=== PATIENT | male | born 1955 | race Caucasian/White ===

== ENCOUNTER 2017-07-21 07:18 | Inpatient (IN) | payer OTHER ==
[~2017-07-21] VITALS: Ht 169.2 cm; Wt 79.0 kg
[~2017-07-21 07:18] MED LIST: MAPA500C PO; MULT-65 PO
[2017-07-21] MEDS ORDERED: METOPROLOL TARTRATE 25 MG TAB PO PRN (07:45)
[2017-07-21] MEDS ORDERED: POVIDONE IODINE 5% (ANTISEPSIS KIT) 4 APPLICATIONS EACH NARE PRN (07:45)
[2017-07-21] MEDS ORDERED: CHLORHEXIDINE GLUCONATE 2 % 1 PACK (2 CLOTHS) TOPICAL PRN (07:45)
[2017-07-21] MEDS ORDERED: VANCOMYCIN 1000 MG/NS 250 ML (for <70 kg) IV SCH ×2 (07:45)
[2017-07-21] MEDS ORDERED: POVIDONE IODINE 7.5% SCRUB 118 ML BOTTLE TOPICAL SCH (07:45)
[2017-07-21] MEDS ORDERED: LACTATED RINGER'S 1000 ML IV PRN (07:45)
[2017-07-21] MEDS ORDERED: SODIUM CHLORID 0.9% 500 ML IV PRN (07:45)
[2017-07-21] MEDS ORDERED: ceFAZolin 2 GM PREMIX 50 ML IV SCH (07:45)
[2017-07-21] MEDS ORDERED: GENTAMICIN SULFATE 80 MG/2 ML VIAL ONE (08:18)
[2017-07-21] MEDS ORDERED: EXPAREL PERI-ARTICULAR INJECTION (TOTAL VOL. 60 ML) P-ARTICULR SCH ×2 (09:00)
[2017-07-21] MEDS ORDERED: TRANEXAMIC ACID INJ 790 MG in SODIUM CHLORIDE 0.9% INJ 100 ML IV SCH (09:00)
[2017-07-21] MEDS ORDERED: RESP: ALBUTEROL 2.5 MG/IPRATROPIUM 0.5 MG NEB (SCH) ONE (09:10)
[2017-07-21] MEDS ORDERED: ACETAMINOPHEN 1000 MG/100 ML 100 ML IV ONE (10:03)
[2017-07-21] MEDS ORDERED: FAMOTIDINE 20 MG/2 ML VIAL ONE (10:03)
[2017-07-21] MEDS ORDERED: LACTATED RINGER'S 1000 ML INJ 1,000 ML IV SCH (13:38)
--- NOTE | 2017-07-21 13:44 | PD.OP ---
cc: Carlos Ross MD Operative Report Date of Surgery: Jul 21, 2017 Preoperative Diagnosis: Nonunion left femoral neck fracture Postoperative Diagnosis: Same. 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 Surgeon: Carlos Ross Sack Keeper(s): KALI Sandoval Operation and Findings: EBL: 350 cc INDICATION: This patient presents with significant hip pain related to a nonunion of left femoral neck fracture. This was treated surgically over year ago with multiple screws. 2 months ago he had screw fixation that was removed because of impingement. He's had increasing pain and evidence of progressive motion across 3 to the fracture, consistent with a nonunion and possible avascular necrosis.. Despite extensive conservative care this patient continues to be painful and now presents for surgical treatment. NOTE: Maribell Sandoval PA-C was present for the entire surgical procedure as my embroidery assistant. In my medical opinion her skill and care was necessary for the proper management of this patient. COMPONENTS: COMPANY: [employer] CUP: Sigel, 54 mm, 100 series, gription surface LINER: Altrx 32, neutral STEM: Corail, size 12, high offset, hydroxyapatite-coated HEAD: Ceramic, 32, +5 mm, 12/14 taper PROCEDURE: This patient was brought to the operating room and anesthetized in the supine position and positioned on the fracture table with both legs held extended. The left hip and leg was scrubbed with alcohol followed by Hibiclens followed by ChloraPrep and draped sterilely. Antibiotics were given within routine time window and a timeout was done. A 4 inch incision was made starting 2 cm distal and 2 cm lateral to the anterior superior iliac spine. The fascia scotty was opened longitudinally. The interval between the fascia scotty and the rectus was opened down to the capsule of the hip joint. Retractors were positioned allowing good visualization of the capsule. This was opened longitudinally and flaps were created. There was evidence of a nonunion of the femoral neck. There was a notable motion between the femoral head and the rest of the femur. Stay sutures were utilized. Exposure was excellent. The neck was cut at the proper location using fluoroscopy as a guide. The head was removed. Deep retractors were positioned allowing good visualization of the acetabulum. Acetabulum was deepened down to the floor starting with a proper size reamer and reaming up to 53 mm. A trial was utilized. Fluoroscopy was used to check position and confirmed satisfactory alignment. The rim was reamed with a a 54 mm reamer and the final cup was positioned in approximately 20 of anteversion and 40-45 of abduction. Position was satisfactory. A single hole eliminator was positioned followed by the final liner. The lifting hook was utilized. The leg was dropped to the floor, maximally externally rotated and brought across the midline. Retractors were positioned. A box osteotome was utilized followed by progressive broaching to the proper stem size. Trial reduction showed excellent alignment and fit. With 40 of external rotation the leg was dropped to the floor without evidence of anterior subluxation. The wound was irrigated. The final stem was inserted and was found to be very stable. The final reduction using the final head. Stability was as previously noted. Intraoperative x-rays were taken. The wound was irrigated copiously. Hemostasis was controlled. Local anesthesia was utilized. The capsule was repaired with #2 Tycron sutures. The fascia scotty was repaired with running 0 PDS on a loop. Subcutaneous tissue was approximated with 2-0 Vicryl and skin with running intradermal 3-0 Vicryl followed by Steri-Strips. A sterile dressing was applied. The patient was awakened and taken to the recovery room in satisfactory condition. FINDINGS: There is evidence of a nonunion of the left femoral neck. This was removed. We needed to machine the calcar more than usual because of hypertrophy of bone which was placing the stem in a valgus position. Final fit was excellent without signs of instability or complication. Carlos Ross MD Jul 21, 2017 13:44
[2017-07-21] MEDS ORDERED: MISCELLANEOUS NURSING INFORMATION XX PRN (13:45)
[2017-07-21] MEDS ORDERED: MORPHINE SULFATE 30 MG/30 ML PCA IV SCH (13:45)
[2017-07-21] MEDS ORDERED: MISCELLANEOUS PHARMACY INFORMATION XX ONE (13:45)
[2017-07-21] MEDS ORDERED: SODIUM CHLORIDE 0.9% FLUSH 5 ML FLUSH IVF PRN (13:45)
[2017-07-21] MEDS ORDERED: NALOXONE HCL 0.4 MG/ML AMP IV PUSH PRN (13:45)
[2017-07-21] MEDS ORDERED: MORPHINE SULFATE 8 MG/ML INJ IM PRN (13:45)
[2017-07-21] MEDS ORDERED: Post-op Orders (for Pharmacy) MISC XX ONE (13:45)
[2017-07-21] MEDS ORDERED: ACETAMINOPHEN/HYDROcodone 325 MG/7.5 MG TAB PO PRN ×2 (13:45)
[2017-07-21] MEDS ORDERED: HYDR-3580 PO (13:47)
[2017-07-21] MEDS ORDERED: XARE10TA PO (13:47)
[2017-07-21] MEDS ORDERED: MORPHINE SULFATE 30 MG/30 ML PCA ONE (13:54)
[2017-07-21] MEDS: PCA - TOTAL MG MORPHINE DELIVERED PER SHIFT SCH ×2 (14:00→22:00)
[2017-07-21] MEDS ORDERED: DO NOT ADM ANY ANTICOAGULANT DRUGS PRN (14:06)
[2017-07-21] MEDS ORDERED: *morphine SULFATE 8 MG/ML PERIprocedure ONLY ONE (14:30)
[2017-07-21] MEDS: REMOVE OLD PATCH T-DERMAL SCH (15:26)
[2017-07-21 16:00] VITALS: BP 103/62; PULSE 88; RESP 18; TEMP 96.6; O2SAT 100
[2017-07-21] MEDS: NICOTINE 21 MG/24 HR PATCH T-DERMAL SCH (16:44)
--- NOTE | 2017-07-21 16:45 | RADRPT ---
EXAM DATE/TIME: 07/21/2017 11:54 [facility] COMPARISON: HIP LEFT (AP&LAT 2/3VWS) WO AP PELVIS, July 03, 2016, 16:06. INDICATIONS : Left anterior hip replacement. MEDICAL HISTORY : Osteoarthritis. Smoker. SURGICAL HISTORY : Previous left hip pinning and removal or hardware. ENCOUNTER: Initial ACUITY: 1 day PAIN SCORE: Non-responsive. LOCATION: Left anterior hip. FINDINGS: A two view examination of the left hip was performed. The patient had a total hip arthroplasty in goo d position. There no complications.. CONCLUSION: Status post left total hip arthroplasty Dilan Valenzuela MD on July 21, 2017 at 16:43 Board Certified Radiologist. This report was verified electronically.
[2017-07-21] MEDS ORDERED: WALKER WHEELS/F1 MIS (19:41)
--- NOTE | 2017-07-21 19:42 | HHI.DCPOC ---
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 Avoid second hand smoke Call the 24-hour hour crisis hotline for domestic abuse at Erica Gutierrez Jul 21, 2017 19:42
--- NOTE | 2017-07-21 19:44 | HHI.DS ---
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 Lateral hip pain so scerws were removed. Fracture began to compress indicating nonunion. COnvert to total hip. Hospital Course Surgical treatment was performed on the day of admission without complication. He recovered well in PACU and was transferred to the orthopaedic floor. Pain was controlled with IV and oral medications. DVT prophylaxis was initiated pod# 1. He was compliant with physical therapy and all restrictions. He was alotted a single beer per meal to avoid DTs. After 1`day he was found to be stable and discharged to intermediate at [facility]. ... Pt Condition on Discharge: Stable Discharge Disposition: Discharge to SNF Discharge Instructions Diet Instructions: As Tolerated, No Restrictions, High Fiber Diet Activities You Can Perform: Weight Bearing as Anant Activities to Avoid: Strenuous Activity Additional Activity Instruc.: ELIDIA precautions New Medications: Walker with Front Wheels (Walker with Front Wheels) 1 Mis Mis EA .ROUTE DIRECTED, #1 0 Refills Hydrocodone/Acetaminophen (Hydrocodone-Acetamin 7.5-325) 7.5 Mg-325 Mg Tablet 1 TAB PO Q4H PRN for PAIN, #50 TAB Rivaroxaban (Xarelto) 10 Mg Tab 10 MG PO Q24H for Prevent Blood Clot, #25 TAB Continued Medications: Acetaminophen (Mapap) 500 Mg Cap 500 MG PO Q4-6H PRN for PAIN, CAP 0 Refills Multiple Vitamin (Multi-Vitamin Daily) 1 Tab Tab 1 TAB PO DAILY for Nutritional Supplement, TAB 0 Refills Erica Gutierrez Jul 21, 2017 19:44
[2017-07-21 20:40] VITALS: BP 100/65; PULSE 106; RESP 18; TEMP 96.9; O2SAT 98
[2017-07-21] MEDS: MAGNESIUM HYDROXIDE SUSP 30 ML CUP PO SCH (20:41)
[2017-07-21] MEDS: SODIUM CHLORIDE 0.9% FLUSH 5 ML FLUSH IVF SCH (20:41)
[2017-07-21] MEDS ORDERED: SENNOSIDES 8.6 MG TAB PO SCH (21:00)
[2017-07-22 00:45] VITALS: BP 100/63; PULSE 99; RESP 18; TEMP 98.6; O2SAT 100
[2017-07-22 04:40] VITALS: BP 112/63; PULSE 103; RESP 18; TEMP 98.9; O2SAT 98
[2017-07-22 05:33] LABS: HEMATOCRIT 30.4 % (39.0-51.0); REVIEW FLAG FINAL
[2017-07-22] MEDS: PCA - TOTAL MG MORPHINE DELIVERED PER SHIFT SCH ×2 (06:00→14:00)
[2017-07-22 07:40] VITALS: O2SAT 98
[2017-07-22 08:00] VITALS: BP 101/57; PULSE 97; RESP 18; TEMP 98.6; O2SAT 97
[2017-07-22] MEDS: MAGNESIUM HYDROXIDE SUSP 30 ML CUP PO SCH (08:14)
[2017-07-22] MEDS: NICOTINE 21 MG/24 HR PATCH T-DERMAL SCH (08:14)
[2017-07-22] MEDS: REMOVE OLD PATCH T-DERMAL SCH (08:14)
[2017-07-22] MEDS: SODIUM CHLORIDE 0.9% FLUSH 5 ML FLUSH IVF SCH (08:16)
[2017-07-22] MEDS ORDERED: INFLUENZA VIRUS VACCINE (QUADRIVALENT) 0.5 ML SYR IM ONE (10:00)
[2017-07-22 12:00] VITALS: BP 99/52; PULSE 105; RESP 18; TEMP 98.9; O2SAT 97
--- NOTE | 2017-07-22 12:38 | PD.ORT.PN ---
Subjective Subjective Remarks He is doing fairly well today. He has some thigh pain with some numbness of the lateral knee. He denies any new CP or SOB. He is drinking 2-3 beers a day and notes no mentation problems or memory dysfunction. He has questions about discharge to rehab. Objective Vitals Vital Signs Date Time Temp Pulse Resp B/P (MAP) Pulse Ox O2 Delivery O2 Flow Rate FiO2 07/22/17 08:00 98.6 97 18 101/57 (72) 97 07/22/17 07:40 98 21 07/22/17 07:21 Room Air 07/22/17 06:00 18 07/22/17 04:40 98.9 103 18 112/63 (79) 98 07/22/17 00:45 98.6 99 18 100/63 (75) 100 07/21/17 22:00 17 07/21/17 20:40 96.9 106 18 100/65 (77) 98 07/21/17 16:00 96.6 88 18 103/62 (76) 100 07/21/17 15:00 97.7 97 18 98/57 (71) 100 Nasal Cannula 2 07/21/17 14:45 86 18 95/51 (66) 100 Nasal Cannula 2 07/21/17 14:36 18 07/21/17 14:30 91 15 124/61 (82) 100 Nasal Cannula 3 07/21/17 14:15 89 15 104/55 (71) 100 Nasal Cannula 3 07/21/17 14:10 92 16 129/66 (87) 100 Nasal Cannula 3 07/21/17 14:05 97.5 92 16 109/69 (82) 100 Nasal Cannula 3 I/O 07/21/17 07/21/17 07/21/17 07/22/17 07/22/17 07/22/17 07:00 15:00 23:00 07:00 15:00 23:00 Intake Total 3000 ml 460 ml 580 ml Output Total 4050 ml 250 ml 400 ml Balance -1050 ml 210 ml 180 ml Intake Oral 360 ml 480 ml IV Total 3000 ml 100 ml 100 ml Output Urine Total 600 ml 250 ml 400 ml Estimated Blood Loss 450 ml Other 3000 ml # Bowel Movements 0 0 Result Diagram: 07/22/17 0430 Procedures Left total hip arthroplasty, Direct anterior approach Objective Remarks Sitting up in his chair No acute distress VSS LLE Left hip dressing c/d/i, no erythema, minimal ecchymosis, mild swelling +motor at distal, +sens distal - some numbness lateral thigh to lateral knee Neg homans bilaterally Assessment & Plan Ortho Post Op Day #: 1 Problem List: (1) Tobacco dependence ICD Codes: F17.200 - Nicotine dependence, unspecified, uncomplicated (2) 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 Possible urinary retention. He has not urinated in 5 hours. If that continues , he may need a bladder scan. Ok for 2-3 beers a day. He historically drinks over 12 beers a day. PT - WBAT RLE. Anterior elidia precautions Xarelto 10mg qd for 4 weeks. Ok to d/c to SNF ([facility] accepted) later today if he is able to urinate. F/U in 2 weeks as scheduled. Erica Gutierrez Jul 22, 2017 12:38
[2017-07-22] MEDS ORDERED: RIVAROXABAN 10 MG TAB PO SCH (13:00)
== END 2017-07-22 15:09 | DRG 470 ==
LOC: HSDI 07:18 → N06A 15:13
PROVIDERS: ADMIT Orthopaedic Surgery Orthopaedic Surgery of the Spine; ATTEND Orthopaedic Surgery Orthopaedic Surgery of the Spine
PROC: 0SRB04A Replacement of Left Hip Joint with Ceramic on Polyethylene Synthetic Substitute, Uncemented, Open Approach (ICD-10-PCS; principal; 2017-07-21 10:52)
DX: S72.002K Fracture of unspecified part of neck of left femur, subsequent encounter for closed fracture with nonunion (principal); M87.9 Osteonecrosis, unspecified; F17.210 Nicotine dependence, cigarettes, uncomplicated; F10.10 Alcohol abuse, uncomplicated; Z23 Encounter for immunization
CPT/HCPCS: 73502; 76000; 85014; 85018; 86850; 86900; 86901; 86920; 88305; 88311; 90686; 94150; 94664; C1776; C9290; J0131; J0690; J1580; J2270; J3370; J7050; J7120; Q2038